=== PATIENT | female | born 1995 | race Hispanic/Latino ===

== ENCOUNTER 2022-06-18 09:44 | Outpatient (CLI) | payer OTHER | END 2022-06-18 09:45 | disposition home or self-care (01) | LOC: CSHULT 09:44 | PROVIDERS: ATTEND Family Medicine | DX: O09.892 Supervision of other high risk pregnancies, second trimester (principal); Z3A.20 20 weeks gestation of pregnancy | CPT/HCPCS: 76805 ==

== ENCOUNTER 2022-10-23 06:25 | Inpatient (IN) | payer OTHER ==
[2022-10-22 10:31] LABS: Hemoglobin 11.7 g/dL (12.0-15.5); Platelet Count 194 10x3/uL (150-450)
[2022-10-22 10:52] LABS: HBSAg Index 0.12 S/CO (0-0.99); Hep B Surf Ag Non-Reactive S/CO (NonReactive)
[2022-10-22 10:54] LABS: Syphilis Antibody Nonreactive (Nonreactive); Syphilis Antibody Index 0.02 S/CO (<1.00 Non-Reactive)
[2022-10-22 10:57] LABS: SARS-CoV-2 NAA Rapid Test Not Detected (NotDetected)
[2022-10-23 07:03] VITALS: BMI 34.0
[2022-10-23] MEDS ORDERED: CEFAZOLIN 2 GM VIAL ONE (07:34)
[2022-10-23] MEDS ORDERED: Bicitra 30 ML UDCUP PO PRN (08:06)
[2022-10-23] MEDS ORDERED: Famotidine/PF 20 mg/2ml Vial SLOW IVP PRN (08:06)
[2022-10-23] MEDS ORDERED: Promethazine HCl 25 MG/ML VIAL IM PRN ×2 (08:07→08:54)
[2022-10-23] MEDS ORDERED: Carboprost 250 MCG/ML AMP IM PRN (08:07)
[2022-10-23] MEDS ORDERED: Diphenoxylate HCl/Atropine Tablet PO PRN ×2 (08:07)
[2022-10-23] MEDS ORDERED: Methylergonovine 0.2 MG/ML VIAL IM PRN ×2 (08:07→13:59)
[2022-10-23] MEDS ORDERED: hydrALAZINE 20 MG/ML VIAL SLOW IVP PRN ×2 (08:07→13:59)
[2022-10-23] MEDS ORDERED: Misoprostol 200 MCG TAB PR PRN ×2 (08:07→13:59)
[2022-10-23] MEDS ORDERED: Ondansetron PF 4 MG/2 ML Vial IVP PRN ×2 (08:07→08:54)
[2022-10-23] MEDS ORDERED: NS w/ Oxytocin 30 units 500 ML IV SCH (08:15)
[2022-10-23] MEDS ORDERED: Lactated Ringer's 1,000 ML IV SCH (08:15)
[2022-10-23] MEDS ORDERED: CEFAZOLIN 2 GM in Sodium Chloride 0.9% 100 ML IVPB SCH (08:15)
[2022-10-23 08:47] LABS: Mean Corpuscular HGB CONC 33.2 g/dL (32.0-36.0); Mean Corpuscular Hemoglobin 32.2 pg (27.0-33.0); Mean Corpuscular Volume 96.8 fl (81.6-98.3); Mean Platelet Volume 11.6 fl (7.4-10.4); Platelet Count 172 10x3/uL (150-450); RBC Distribution Width 13.3 % (11.5-14.5); Red Blood Cell (RBC) Count 3.42 10x6/uL (3.90-5.03); White Blood Cell (WBC) Count 6.9 10x3/uL (3.5-10.5)
[2022-10-23] MEDS ORDERED: Meperidine HCl/PF 25 MG/ML VIAL SLOW IVP PRN (08:54)
[2022-10-23] MEDS ORDERED: Promethazine HCl 25 MG SUPP PR PRN (08:54)
[2022-10-23] MEDS ORDERED: Ondansetron HCl/PF 4 MG/2 ML Vial IVP PRN (08:54)
[2022-10-23] MEDS ORDERED: Fentanyl 100 MCG/2 ML VIAL SLOW IVP PRN (08:54)
[2022-10-23] MEDS ORDERED: Naloxone HCl 0.4 mg/ml Vial IVP PRN ×2 (08:54)
[2022-10-23] MEDS ORDERED: Moisturizing Cream (Eucerin) 113 GM JAR TOP PRN (08:54)
[2022-10-23] MEDS ORDERED: diphenhydrAMINE 50 MG/ML VIAL IVP PRN (08:54)
[2022-10-23] MEDS ORDERED: Naloxone HCl 0.4 mg/ml Vial IV PRN (08:54)
[2022-10-23] MEDS ORDERED: Communication Order-Pharmacy FS SCH (09:00)
[2022-10-23] MEDS ORDERED: Morphine PF 10 MG/10 ML VIAL ONE (09:14)
[2022-10-23] MEDS ORDERED: Ondansetron PF 4 MG/2 ML Vial ONE (09:15)
[2022-10-23] MEDS ORDERED: Phenylephrine 40 MG/NS 250 ML 250 ML ONE (09:15)
[2022-10-23] MEDS ORDERED: Ketorolac Tromethamine 30 MG/ML VIAL ONE (09:15)
[2022-10-23] MEDS ORDERED: ePHEDrine Sulfate 50 MG/10 ML VIAL ONE (09:15)
[2022-10-23] MEDS ORDERED: Oxytocin 10 UNITS/ML VIAL ONE ×2 (09:15→10:40)
[2022-10-23] MEDS ORDERED: PHENYLEPHRINE-NS 100 MCG/ML 10 ML SYRINGE ONE (09:15)
[2022-10-23 09:18] LABS: HBSAg Index 0.16 S/CO (0-0.99); Hep B Surf Ag Non-Reactive S/CO (NonReactive)
[2022-10-23 09:19] LABS: Syphilis Antibody Nonreactive (Nonreactive); Syphilis Antibody Index 0.03 S/CO (<1.00 Non-Reactive)
[2022-10-23] MEDS ORDERED: Fentanyl 100 MCG/2 ML VIAL ONE (10:30)
[2022-10-23] MEDS ORDERED: Ketorolac Tromethamine 30 MG/ML VIAL IVP SCH (11:30)
[2022-10-23] MEDS ORDERED: Boostrix 0.5 ML (Tdap) VIAL (>/=7 yrs of age) IM ONE (13:59)
[2022-10-23] MEDS ORDERED: Simethicone Chewable 80 MG TAB PO PRN (13:59)
[2022-10-23] MEDS ORDERED: Ibuprofen 800 MG TAB PO SCH (14:00)
[2022-10-23] MEDS: Docusate 100 MG CAP PO SCH (20:16)
[2022-10-23] MEDS ORDERED: HYDROcodone/Acetaminophen 5/325 mg Tablet PO PRN ×2 (21:00)
[2022-10-24 04:38] LABS: Hemoglobin 7.8 g/dL (12.0-15.5); Mean Corpuscular HGB CONC 33.2 g/dL (32.0-36.0); Mean Corpuscular Hemoglobin 32.4 pg (27.0-33.0); Mean Corpuscular Volume 97.5 fl (81.6-98.3); Mean Platelet Volume 11.7 fl (7.4-10.4); Platelet Count 129 10x3/uL (150-450); RBC Distribution Width 13.2 % (11.5-14.5); Red Blood Cell (RBC) Count 2.41 10x6/uL (3.90-5.03); White Blood Cell (WBC) Count 6.6 10x3/uL (3.5-10.5)
[2022-10-24] MEDS: Ketorolac Tromethamine 30 MG/ML VIAL IVP PRN ×2 (08:07→14:21)
[2022-10-24] MEDS: Docusate 100 MG CAP PO SCH ×2 (08:07→21:21)
[2022-10-24] MEDS ORDERED: Ferrous Sulfate 325 MG TAB PO SCH (12:00)
[2022-10-24] MEDS: Ibuprofen 800 MG TAB PO SCH (21:21)
[2022-10-25 00:43] LABS: #Monocytes 0.5 10x3/uL (0.0-1.1); #Neutrophils 3.9 10x3/uL (1.5-8.4); %Basophils 0.2 % (0.0-2.0); %Eosinophils 0.3 % (0.0-6.0); %Lymphocytes 21.4 % (18.0-47.0); %Monocytes 8.9 % (0.0-10.0); %Neutrophils 68.7 % (40.0-75.0); Hemoglobin 10.3 g/dL (12.0-15.5); Mean Corpuscular HGB CONC 34.6 g/dL (32.0-36.0); Mean Corpuscular Hemoglobin 32.4 pg (27.0-33.0); Mean Corpuscular Volume 93.7 fl (81.6-98.3); Mean Platelet Volume 11.2 fl (7.4-10.4); Platelet Count 165 10x3/uL (150-450); RBC Distribution Width 13.8 % (11.5-14.5); Red Blood Cell (RBC) Count 3.18 10x6/uL (3.90-5.03); White Blood Cell (WBC) Count 5.7 10x3/uL (3.5-10.5)
[2022-10-25] MEDS: Ibuprofen 800 MG TAB PO SCH (05:52)
[2022-10-25 07:57] VITALS: BP 109/59; TEMP 97.7
[2022-10-25] MEDS ORDERED: Ferrous Sulfate 325 MG TAB PO SCH (08:00)
[2022-10-25] MEDS: Docusate 100 MG CAP PO SCH (08:14)
== END 2022-10-25 12:55 | disposition home or self-care (01) | DRG 787 ==
LOC: CSHLD 06:25 → CSHPED 13:25
PROVIDERS: ADMIT Family Medicine; ATTEND Family Medicine
PROC: 10D00Z1 Extraction of Products of Conception, Low, Open Approach (ICD-10-PCS; 2022-10-23)
PROC: 30233N1 Transfusion of Nonautologous Red Blood Cells into Peripheral Vein, Percutaneous Approach (ICD-10-PCS; principal; 2022-10-24)
DX: O34.211 Maternal care for low transverse scar from previous cesarean delivery (principal); O72.1 Other immediate postpartum hemorrhage; N73.6 Female pelvic peritoneal adhesions (postinfective); E66.9 Obesity, unspecified; O99.214 Obesity complicating childbirth; O99.892 Other specified diseases and conditions complicating childbirth; Z20.822 Contact with and (suspected) exposure to COVID-19; Z3A.39 39 weeks gestation of pregnancy; Z37.0 Single live birth; Z98.890 Other specified postprocedural states; Q51.818 Other congenital malformations of uterus; Z79.899 Other long term (current) drug therapy
CPT/HCPCS: 36415; 36430; 51702; 85014; 85018; 85025; 85027; 85049; 86780; 86850; 86900; 86901; 87340; J1885; J2274; J2405; J2590; J3010; P9016; U0002

== ENCOUNTER 2024-06-14 13:31 | Emergency (ER) | payer OTHER ==
[2024-06-14 15:03] LABS: #Basophils 0.02 10x3/uL (0.0-0.2); #Eosinophils 0.01 10x3/uL (0.0-0.5); #Monocytes 0.27 10x3/uL (0.0-1.1); #Neutrophils 2.14 10x3/uL (1.5-8.4); %Basophils 0.6 % (0.0-2.0); %Eosinophils 0.3 % (0.0-6.0); %Lymphocytes 25.8 % (18.0-47.0); %Monocytes 8.2 % (0.0-10.0); %Neutrophils 64.8 % (40.0-75.0); Hemoglobin 8.6 g/dL (12.0-15.5); Mean Corpuscular HGB CONC 31.9 g/dL (32.0-36.0); Mean Corpuscular Hemoglobin 26.5 pg (27.0-33.0); Mean Corpuscular Volume 83.3 fL (81.6-98.3); Mean Platelet Volume 10.2 fL (7.4-10.4); Platelet Count 305 10x3/uL (150-450); RBC Distribution Width 14.9 % (11.5-14.5); Red Blood Cell (RBC) Count 3.24 10x6/uL (3.90-5.03); White Blood Cell (WBC) Count 3.3 10x3/uL (3.5-10.5)
[2024-06-14 15:15] LABS: PTT 25.3 sec (22.0-33.0); Prothrombin Time 10.9 sec (9.5-12.1)
[2024-06-14 15:19] LABS: ALT (SGPT) 16 U/L (8-55); AST (SGOT) 14 U/L (5-34); Albumin 3.5 g/dL (3.5-5.0); Alkaline Phosphatase 62 U/L (40-110); Anion Gap 11 mmol/L (10-20); BUN (Urea Nitrogen) 9 mg/dL (7.0-18.7); Bilirubin, Total 0.4 mg/dL (0.2-1.2); Calc. Creatinine Clearance 0 mL/min (70-130); Calcium 9.1 mg/dL (7.8-10.44); Carbon Dioxide 22 mmol/L (22-29); Chloride 111 mmol/L (98-107); Estimated GFR 125; Globulin 2.8 g/dL (2.4-3.5); Glucose 96 mg/dL (70-105); Potassium 3.8 mmol/L (3.5-5.1); Protein, Total 6.3 g/dL (6.0-8.3); Sodium 140 mmol/L (136-145)
[2024-06-14 15:28] LABS: BHCG - Serum Negative (NEGATIVE); Pregs Control Background? CLEAR/WHITE (CLR/WHITE); Pregs Control Bar Appear? YES (CONTROL BAR)
== END 2024-06-14 16:20 | disposition home or self-care (01) ==
LOC: CSHERS 13:31
DX: D50.9 Iron deficiency anemia, unspecified (principal); R42 Dizziness and giddiness
CPT/HCPCS: 36415; 80053; 84703; 85025; 85610; 85730; 86850; 86900; 86901; 93005; 99284